=== PATIENT | female | born 1965 | race African-American/Black ===

== ENCOUNTER 2016-10-13 14:04 | Emergency (ER) | payer MEDICARE ==
[2016-10-13 13:43] LABS: BASOPHILS 0.3 %; BASOPHILS ABSOLUTE 0.02 10/3/uL (0.0-0.16); EOSINOPHILS ABSOLUTE 0.07 10/3/uL (0.0-0.53); ER CBC TAT 0 Hrs 07 Mins; HEMATOCRIT 26.5 % (36.0-48.0); HEMOGLOBIN 8.3 g/dL (12.0-16.0); IMMATURE GRANULOCYTES 0.1 %; IMMATURE GRANULOCYTES ABSOLUTE 0.01 10/3/uL (0.0-0.11); LYMPHOCYTES 34.1 %; MANUAL DIFF NO %; MEAN CORPUS HGB CONC 31.3 g/dL (32.0-36.0); MEAN CORPUSCULAR HEMOGLOB 20.3 pg (26.0-34.0); MONOCYTES 6.1 %; MONOCYTES ABSOLUTE 0.43 10/3/uL (0.21-1.20); NEUTROPHILS 58.4 %; PLATELET COUNT 535 10/3/uL (150-400); RBC DISTRIBUTION WIDTH 20.2 % (12.0-16.0); RED CELL COUNT 4.08 10/6/uL (4.0-5.6)
[2016-10-13 13:53] LABS: INTERNATIONAL NORMAL RATI 1.1 UNITS (-); PROTIME (NOT ORD) 13.9 SEC (12.0-14.5)
[2016-10-13 13:54] LABS: PARTIAL THROMBO TIME 35.4 SEC (22.5-37.2)
[2016-10-13 13:56] LABS: D-DIMER QUANTITATIVE 3.44 ug/mLFEU (< 0.50)
[2016-10-13 14:00] LABS: BUN (BLOOD UREA NITROGEN) 8 MG/DL (6-23); CALCIUM, SERUM 8.5 MG/DL (8.5-10.4); CHEST PAIN PROFILE TAT 0 Hrs 24 Mins; CHLORIDE, SERUM 103 MMOL/L (96-112); CO2 (CARBON DIOXIDE) 28 MMOL/L (24-34); CREATININE 0.59 MG/DL (0.55-1.02); GFR AFRICAN AMERICAN 125 ML/MIN (>=60); GFR NON AFRICAN AMERICAN 108 ML/MIN (>=60); POTASSIUM, SERUM 4.1 MMOL/L (3.5-5.3); SODIUM, SERUM 138 MMOL/L (135-148); TROPONIN I <0.02 NG/ML (<0.05)
[2016-10-13 14:01] LABS: GLUCOSE, SERUM 85 MG/DL (60-99); PLATELET ESTIMATE SLT INC (ADEQUATE)
[2016-10-13 14:02] LABS: ANISOCYTOSIS 1+ (5-10/OIF) (0-5/OIF); HYPOCHROMIA 1+ (3-10/OIF) (0-2/OIF); MICROCYTES 4+ (>50/OIF) (0-5/OIF)
[~2016-10-13 14:04] MED LIST: ALEVE220 MG PO; AMB10 PO; B 12 INJECTION; CELEBREX2 PO; COMPOUNDED PAIN CRM TOP; CYMBALTA20 PO; CYMBALTA30 PO; CYMBALTA60 PO; DITROPAN XL15 MG PO; ENABLEX15 PO; EXCEDRIN MIGRA1 EAC1 PO; EXFORGE1 TA2 PO; EXFORGE1 TAB PO; EZFE 200200 MG PO; FERROUS SULF325 M1 PO; FLEX PO; INDE120LA PO; IRON325 MG PO; KCL20UDL PO; KETAPROFEN; L20 PO; LEVAQUIN750 MG PO; LIPITOR10 PO; LORT7 PO; LORTABLIQ PO; MAXALT10 MG PO; METHOC500B PO; MOTRIN IB200 MG PO; MULTIPLE VIT PO; NAP500 PO; NITROQUICK0.4 MG SL; NORV10 PO; PERCOCET1 TA2 PO; PRIN10 PO; ULTRAM50 PO; VIT D; VITAMIN D1000 UNI1 PO; XANAX1 MG PO; ZANAFLEX2 MG PO
[2016-10-27] MEDS ORDERED: AMB10 PO (13:58)
[2016-10-27] MEDS ORDERED: DEPAKOT500 PO (13:59)
[2016-10-27] MEDS ORDERED: ZANAFLEX 4 MG TA4 MG PO (13:59)
[2016-10-27] MEDS ORDERED: BUTRANS1 EAC3 TOP (14:00)
[2016-10-27] MEDS ORDERED: ZOFRAN ODT4 MG PO (14:00)
[2016-10-27] MEDS ORDERED: LEXAPRO10 PO (14:01)
[2016-10-27] MEDS ORDERED: L20 PO (14:02)
== END 2016-10-13 16:53 | disposition home or self-care (01) ==
LOC: ER 14:04
PROVIDERS: Emergency Medicine
DX: R07.9 Chest pain, unspecified (principal); R06.00 Dyspnea, unspecified; R06.01 Orthopnea; D64.9 Anemia, unspecified; I10 Essential (primary) hypertension; K21.9 Gastro-esophageal reflux disease without esophagitis; F32.9 Major depressive disorder, single episode, unspecified; F41.9 Anxiety disorder, unspecified; Z79.899 Other long term (current) drug therapy
CPT/HCPCS: 71010; 71275; 80048; 83735; 83880; 84484; 85025; 85379; 85610; 85730; 93005; 99285; Q9967

== ENCOUNTER 2016-10-29 06:36 | Inpatient (IN) | payer MEDICARE ==
[2016-10-28 09:39] LABS: BASOPHILS 0.1 %; BASOPHILS ABSOLUTE 0.01 10/3/uL (0.0-0.16); EOSINOPHILS 1.1 %; EOSINOPHILS ABSOLUTE 0.08 10/3/uL (0.0-0.53); HEMATOCRIT 28.8 % (36.0-48.0); LYMPHOCYTES 29.9 %; LYMPHOCYTES ABSOLUTE 2.08 10/3/uL (0.67-4.30); MEAN CORPUS HGB CONC 31.3 g/dL (32.0-36.0); MEAN CORPUSCULAR HEMOGLOB 20.9 pg (26.0-34.0); MEAN CORPUSCULAR VOLUME 66.8 fL (80-100); MEAN PLATELET VOLUME 8.8 fL (9.2-13.0); MONOCYTES 8.5 %; MONOCYTES ABSOLUTE 0.59 10/3/uL (0.21-1.20); NEUTROPHILS 60.4 %; RBC DISTRIBUTION WIDTH 19.4 % (12.0-16.0); RED CELL COUNT 4.31 10/6/uL (4.0-5.6)
[2016-10-28 09:40] LABS: MANUAL DIFF NO %; PLATELET COUNT 348 10/3/uL (150-400)
[2016-10-28 09:45] LABS: INTERNATIONAL NORMAL RATI 1.1 UNITS (-); PROTIME (NOT ORD) 13.6 SEC (12.0-14.5)
[2016-10-28 09:51] LABS: ASCORBIC ACID (UR NOT ORDER) NEG (NEG); BILIRUBIN, URINE NEGATIVE (NEG); KETONE, URINE NEGATIVE (NEG); LEUKOCYTE ESTERASE(NOT OR SMALL (NEG); WBC (NOT ORDERED) (RFLEX) 4 (0-5)
[2016-10-28 09:56] LABS: A/G RATIO 0.8 (0.7-1.9); ALBUMIN 3.4 G/DL (3.5-5.0); ALKALINE PHOSPHATASE 97 U/L (45-117); BUN (BLOOD UREA NITROGEN) 11 MG/DL (6-23); CALCIUM, SERUM 8.3 MG/DL (8.5-10.4); CHLORIDE, SERUM 104 MMOL/L (96-112); CO2 (CARBON DIOXIDE) 29 MMOL/L (24-34); CREATININE 0.72 MG/DL (0.55-1.02); GFR AFRICAN AMERICAN 114 ML/MIN (>=60); GFR NON AFRICAN AMERICAN 98 ML/MIN (>=60); GLOBULIN 4.2 G/DL (2.5-4.1); GLUCOSE, SERUM 80 MG/DL (60-99); POTASSIUM, SERUM 3.8 MMOL/L (3.5-5.3); SGOT(AST) 16 U/L (5-40); SGPT(ALT) 23 U/L (5-65); SODIUM, SERUM 141 MMOL/L (135-148); TOTAL BILIRUBIN 0.4 MG/DL (0-1.2); TOTAL PROTEIN 7.6 G/DL (6.0-8.5)
[2016-10-28 10:11] LABS: ANISOCYTOSIS 1+ (5-10/OIF) (0-5/OIF); PLATELET ESTIMATE ADQ (ADEQUATE)
[2016-10-28 10:12] LABS: HYPOCHROMIA 1+ (3-10/OIF) (0-2/OIF)
--- NOTE | ~2016-10-29 | OP ---
Record Of Operation [facility] [address] [place]. [address] NAME: KARIN DAN : 69 STATUS : ADM IN PAT#: [id number] AGE: 51 ADM/REG DATE : 10/29/16 MR#: [id number] REPORT SERV DATE: 10/29/16 DICTATED BY: HIRAL MCGREGOR JR. DATE: 10/29/16 REPORT STATUS : Draft TRANSCRIBED BY: MODL DATE: 10/29/16 DATE OF PROCEDURE: 10/29/2016 PREOPERATIVE DIAGNOSES: Atypical chest pain, fibromyalgia, increased body mass index, sickle cell trait, chronic pain syndrome, anterior mediastinal mass compatible with thymoma. POSTOPERATIVE DIAGNOSIS: Pathology pending. NAME OF OPERATION: Bronchoscopy, robotic-assisted right thoracoscopy, total thymectomy, intercostal nerve block. SURGEON: Hiral Mcgregor Jr., M.D. RESIDENT SURGEON: Dr. Price Soni. ASSISTANTS: Gilberto Worthy and Alexandre Cuevas. ANESTHESIA: General endotracheal. FINDINGS: The patient was noted to have an obvious mass in the anterior mediastinum contained within the thymus gland. There were multiple benign-appearing lymph nodes associated with this. Once we had the mass removed actually were 2 areas of mass with some remnants of mature thymic tissue. 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 Final pathology is pending. DETAILS OF OPERATION: After adequate general anesthesia, the patient was intubated. Bronchoscopy was performed noting no endobronchial lesions. There was no contraindication proceeding with surgery. A left-sided double-lumen endotracheal tube was then placed. The patient was positioned in a supine position where the right chest was prepped and draped in a routine sterile fashion. A small incision was made in the lateral aspect. A Veress needle was inserted. The chest was insufflated to 10 cm of pressure. Trocar was then introduced followed by placement of additional trocars under direct visualization. The da Shereen was then docked. Instruments were placed under direct visualization. A thymectomy was performed using electrocautery and blunt dissection. We were able to get into the neck on both sides. The innominate vein was preserved. Branches from the innominate vein were clipped with multiple clips. The left pleural space was entered. The thymus was placed into a retrieval bag and withdrawn through the anterior trocar site. Adequate hemostasis was obtained. Trocar sites were reinspected. The instruments were removed. A suction catheter was placed in the chest cavity where the CO2 was evacuated. The right lung was reinflated. The trocar sites were closed with running Vicryl sutures. The skin was closed with running monofilament suture. A Dermabond dressing was applied. Anesthesia was terminated this point. The patient tolerated the procedure well and returned back to the recovery room in stable condition. Record Of Operation [address] [id number] NAME: KARIN DAN : 69 STATUS : ADM IN [facility]#: [id number] AGE: 51 ADM/REG DATE : 10/29/16 MR#: [id number] REPORT SERV DATE: 10/29/16 DICTATED BY: HIRAL MCGREGOR JR. DATE: 10/29/16 REPORT STATUS : Draft TRANSCRIBED BY: JULIETTE DATE: 10/29/16 CODY/JULIETTE Hiral Mcgregor Jr., M.D. / [id number] CC: Ellen King Jr.
[~2016-10-29 06:36] MED LIST changes: +BUTRANS1 EAC3 TOP; +DEPAKOT500 PO; +LEXAPRO10 PO; +ZANAFLEX 4 MG TA4 MG PO; +ZOFRAN ODT4 MG PO
[2016-10-29 08:03] LABS: ALBUMIN 3.5 G/DL (3.5-5.0); DIRECT BILIRUBIN 0.1 MG/DL (0.0-0.4); INDIRECT BILIRUBIN(NOT ORDER) 0.3 MG/DL (0.1-0.9); TOTAL BILIRUBIN 0.4 MG/DL (0-1.2)
[2016-10-30 06:36] LABS: BASOPHILS 0.1 %; BASOPHILS ABSOLUTE 0.01 10/3/uL (0.0-0.16); EOSINOPHILS 0.1 %; EOSINOPHILS ABSOLUTE 0.01 10/3/uL (0.0-0.53); HEMATOCRIT 23.8 % (36.0-48.0); HEMOGLOBIN 7.6 g/dL (12.0-16.0); IMMATURE GRANULOCYTES 0.2 %; IMMATURE GRANULOCYTES ABSOLUTE 0.02 10/3/uL (0.0-0.11); LYMPHOCYTES 14.6 %; LYMPHOCYTES ABSOLUTE 1.75 10/3/uL (0.67-4.30); MANUAL DIFF NO %; MEAN CORPUS HGB CONC 31.9 g/dL (32.0-36.0); MEAN CORPUSCULAR HEMOGLOB 20.9 pg (26.0-34.0); MEAN CORPUSCULAR VOLUME 65.6 fL (80-100); MEAN PLATELET VOLUME 9.1 fL (9.2-13.0); MONOCYTES 8.8 %; MONOCYTES ABSOLUTE 1.05 10/3/uL (0.21-1.20); NEUTROPHILS 76.2 %; NEUTROPHILS ABSOLUTE 9.11 10/3/uL (2.02-8.40); PLATELET COUNT 302 10/3/uL (150-400); RBC DISTRIBUTION WIDTH 19.4 % (12.0-16.0); RED CELL COUNT 3.63 10/6/uL (4.0-5.6)
[2016-10-30 06:54] LABS: BUN (BLOOD UREA NITROGEN) 8 MG/DL (6-23); CALCIUM, SERUM 8.3 MG/DL (8.5-10.4); CHLORIDE, SERUM 105 MMOL/L (96-112); CO2 (CARBON DIOXIDE) 27 MMOL/L (24-34); CREATININE 0.81 MG/DL (0.55-1.02); GFR AFRICAN AMERICAN 99 ML/MIN (>=60); GFR NON AFRICAN AMERICAN 85 ML/MIN (>=60); POTASSIUM, SERUM 3.7 MMOL/L (3.5-5.3); SODIUM, SERUM 141 MMOL/L (135-148)
[2016-10-30 06:56] LABS: GLUCOSE, SERUM 106 MG/DL (60-99)
[2016-10-30 06:58] LABS: ANISOCYTOSIS 1+ (5-10/OIF) (0-5/OIF)
[2016-10-30 07:00] LABS: PLATELET ESTIMATE ADQ (ADEQUATE)
== END 2016-10-30 17:24 | disposition home or self-care (01) | DRG 804 ==
LOC: SDC/OF 06:36 → PACU 12:09 → 5NO 13:53
PROVIDERS: Thoracic Surgery (Cardiothoracic Vascular Surgery)
PROC: 0BJ08ZZ Inspection of Tracheobronchial Tree, Via Natural or Artificial Opening Endoscopic (ICD-10-PCS; 2016-10-29)
PROC: 8E0W4CZ Robotic Assisted Procedure of Trunk Region, Percutaneous Endoscopic Approach (ICD-10-PCS; 2016-10-29)
PROC: 3E0T3CZ (ICD-10-PCS; 2016-10-29)
PROC: 07TM4ZZ Resection of Thymus, Percutaneous Endoscopic Approach (ICD-10-PCS; principal; 2016-10-29 07:30)
DX: D15.0 Benign neoplasm of thymus (principal); I10 Essential (primary) hypertension; D57.3 Sickle-cell trait; M79.7 Fibromyalgia; G89.4 Chronic pain syndrome; E66.9 Obesity, unspecified; G47.33 Obstructive sleep apnea (adult) (pediatric)
CPT/HCPCS: 36415; 36600; 80048; 80053; 80076; 81001; 82962; 84703; 85025; 85610; 86850; 86900; 86901; 87086; 87641; 88305; 88307; 88331; 93005; 94640; A9270-GY; G0463; J0330; J0690; J1170; J1885; J2250; J2370; J2405; J2710; J2795; J3010